=== PATIENT | female | born 1995 | race African-American/Black ===

== ENCOUNTER 2016-08-13 17:38 | Emergency (ER) | payer OTHER ==
[2016-08-13] MEDS ORDERED: KETOROLAC TROMETHAMINE 30 MG/1 ML VIAL ONE (17:52)
[2016-08-13] MEDS ORDERED: LIDOCAINE HCL 1%, 10 MG/ML (20ML VIAL) ONE (18:03)
[2016-08-13] MEDS ORDERED: KETOROLAC TROMETHAMINE 30 MG/1 ML VIAL IVPUSH ONE (18:32)
[2016-08-13] MEDS ORDERED: ACETAMINOPHEN 1000 MG/100 ML VIAL (NON FORMULARY) IVPB ONE (18:33)
[2016-08-13 18:36] LABS: BASOPHIL 0.3 % (0-2.0); EOSINOPHIL 0.1 % (0-4.5); MCHC 33.4 g/dl (32.0-36.0); MEAN CELL VOLUME 89.7 fl (80-96); PLATELET COUNT 209 K/MM3 (134-434); RDW 11.4 % (11.6-15.6)
--- NOTE | 2016-08-13 18:36 | PDOC ---
History of Present Illness - General History Source: Patient, Old Records Exam Limitations: No Limitations - History of Present Illness Initial Comments: 08/13/16 18:42 The patient is a 21 year old female with no significant past medical history who presents to the emergency department with diarrhea, vomiting, chills, weakness, abdominal pain, and menstrual cramps since yesterday. The patient notes that her vomitous and diarrhea is nonbloody and nonbilious.The patient states that she has not been unable to keep any oral intake down since onset of symptoms. The patient notes that she had a mild subjective fever yesterday that has since resolved. The patient states that she is currently on her mentural period and notes that it is on time accompanied by her normal menstrual cramps. She also admits to chills. The patient denies any sick contacts. Remainder of the review of systems is negative - HPI 12 point review of systems is as per history of present illness and otherwise negative. <Eladio Correa - Last Filed: 08/13/16 18:49> <Ellie Hwang - Last Filed: 08/15/16 07:53> - General Chief Complaint: Vomiting/Diarrhea Stated Complaint: VOMITING AND DIARRHEA Time Seen by Provider: 08/13/16 18:25 Past History <Eladio Correa - Last Filed: 08/13/16 18:49> - Past Medical History Asthma: No Cancer: No Cardiac Disorders: No Diabetes: No HTN: No Seizures: No Thyroid Disease: No - Immunization History Immunization Up to Date: No - Psycho/Social/Smoking Cessation Hx Anxiety: No Suicidal Ideation: No Smoking Status: No Smoking History: Never smoked Have you smoked in the past 12 months: No Number of Cigarettes Smoked Daily: 0 Hx Alcohol Use: No Drug/Substance Use Hx: No Substance Use Type: None Hx Substance Use Treatment: No <Ellie Hwang - Last Filed: 08/15/16 07:53> - Past Medical History Allergies/Adverse Reactions: Allergies Allergy/AdvReac Type Severity Reaction Status Date / Time No Known Drug Allergies Allergy Verified 08/13/16 17:41 Home Medications: Ambulatory Orders No Home Medications 0 dose .ROUTE UTDICT 08/08/12 Naproxen [Naprosyn -] 500 mg PO BID #20 tablet 01/16/17 Ondansetron [Zofran Odt -] 4 mg SL TID #12 od.tablet 08/13/16 *Physical Exam - Physical Exam Comments: 08/13/16 18:34 Physical exam GENERAL: The patient is awake, alert, and fully oriented, and in no apparent distress. HEAD: Normal with no signs of trauma. EYES: Sclera anicteric ENT: Mucous membranes slightly dry NECK: Normal range of motion, supple LUNGS: Breath sounds equal, clear to auscultation bilaterally. No wheezes, and no crackles. HEART: Regular rate and rhythm, normal S1 and S2 without murmur, rub or gallop. ABDOMEN: Abdomen is soft, with normal bowel sounds There is mild diffuse tenderness to palpation in all quadrants, without guarding or rebound There is no hepatosplenomegaly There is no CVA tenderness EXTREMITIES: Normal range of motion, no edema. No clubbing or cyanosis. No cords, erythema, or tenderness. NEUROLOGICAL: Cranial nerves II through XII grossly intact. Normal speech, normal gait. PSYCH: Normal mood, normal affect. SKIN: Warm, Dry, normal turgor, no rashes or lesions noted. <Ellie Hwang - Last Filed: 08/15/16 07:53> ED Treatment Course - LABORATORY CBC & Chemistry Diagram: 08/13/16 18:25 08/13/16 18:25 - ADDITIONAL ORDERS Additional order review: 08/13/16 18:25 RBC 4.73 MCV 89.7 MCHC 33.4 RDW 11.4 L MPV 8.0 Neutrophils % 85.0 H Lymphocytes % 10.9 Monocytes % 3.7 L Eosinophils % 0.1 Basophils % 0.3 - Medications Given in the ED: ED Medications Discontinued Medications Generic Name Dose Route Start Last Admin Trade Name Freq PRN Reason Stop Dose Admin Acetaminophen 1,000 mg 08/13/16 18:33 08/13/16 18:37 Ofirmev Injection - IVPB 08/13/16 18:34 1,000 mg ONCE ONE Administration Ketorolac Tromethamine 30 mg 08/13/16 18:32 08/13/16 18:34 Toradol Injection - IVPUSH 08/13/16 18:33 30 mg ONCE ONE Administration <Eladio Correa - Last Filed: 08/13/16 18:49> - LABORATORY CBC & Chemistry Diagram: 08/13/16 18:25 08/13/16 18:25 <Ellie Hwang - Last Filed: 08/15/16 07:53> Medical Decision Making - Medical Decision Making 08/13/16 18:35 Most likely viral gastroenteritis with crampy abdominal pain, superimposed on menstrual cramps Will start IV fluid, Zofran, pain control 08/13/16 19:00 SIGN OUT Case discussed in detail with oncoming Emergency Physician including history, physical exam and ancillary studies. Oncoming Emergency Physician has assumed care for the patient and will complete the evaluation and treatment. Transfer of care to Dr. Alva at 7 PM awaiting all labwork, and reevaluation <Ellie Hwang - Last Filed: 08/15/16 07:53> *DC/Admit/Observation/Transfer - Attestations Scribe Attestion: 08/13/16 18:41 Documentation prepared by Eladio Correa, acting as electromedical equipment repairer for Ellie Mays MD. <Eladio Correa - Last Filed: 08/13/16 18:49> <Ellie Hwang - Last Filed: 08/15/16 07:53> Diagnosis at time of Disposition: Nausea vomiting and diarrhea, Dysmenorrhea, Dehydration - Discharge Dispostion Disposition: HOME Condition at time of disposition: Stable - Prescriptions Prescriptions: Naproxen [Naprosyn -] 500 mg PO BID #20 tablet Ondansetron [Zofran Odt -] 4 mg SL TID #12 od.tablet - Patient Instructions Additional Instructions: If he develop any more nausea or vomiting U can take Zofran 1 tablet as often as 3 times a day. For pain you can take Naprosyn 1 tablet twice a day. Clear liquids only for the next 6 hours.. After that if you have had no further vomiting you may have bananas, rice, applesauce, or toast. If no further vomiting for another 8 hours you may have regular food. If you vomit again then nothing to eat or drink for 2 hours. then start back with the clear liquids. Return to the emergency department immediately with ANY new, persistent or worsening symptoms. You MUST call and follow up with your doctor tomorrow if not better. Please make sure your doctor reviews the results of your emergency evaluation. Your hormone test was still relatively elevated it is important that you see your OB doctor in 2 days and have it repeated. Make sure that it is decreasing. Thank you for coming to the Emergency Department today for your care. It was a pleasure to see you today. Please note that your evaluation is INCOMPLETE until you follow-up with your doctor.
[2016-08-13] MEDS ORDERED: ACETAMINOPHEN INJECTION 100 ML IVPB ONE (18:38)
[2016-08-13] MEDS ORDERED: SODIUM CHLORIDE 1,000 ML IV SCH ×2 (18:45)
[2016-08-13 18:51] LABS: ALBUMIN 4.2 g/dl (3.5-5.0); ALK PHOS 49 U/L (32-92); ANION GAP 9 (8-16); BILIRUBIN,TOTAL 0.8 mg/dl (0.2-1.0); CALCIUM 9.5 mg/dl (8.4-10.2); CO2 24 mmol/L (22-28); CREATININE 0.8 mg/dl (0.6-1.3); GLUCOSE,RANDOM 115 mg/dl (74-106); MAGNESIUM 1.6 mg/dL (1.8-2.4); SGOT/AST 22 U/L (10-42); SGPT/ALT 13 U/L (10-40); TOT PROT 7.2 g/dl (6.4-8.3)
[2016-08-13 19:33] VITALS: BMI 27.9
--- NOTE | 2016-08-13 19:46 | PDOC ---
*Physical Exam - Vital Signs Last Vital Signs Temp Pulse Resp BP Pulse Ox 98.4 F 88 16 121/69 100 08/13/16 18:20 08/13/16 18:20 08/13/16 18:20 08/13/16 18:20 08/13/16 18:20 ED Treatment Course - LABORATORY CBC & Chemistry Diagram: 08/13/16 18:25 08/13/16 18:25 - ADDITIONAL ORDERS Additional order review: Laboratory Results 08/13/16 18:25 Sodium 135 L Potassium 3.5 Chloride 102 Carbon Dioxide 24 Anion Gap 9 BUN 11 Creatinine 0.8 Creat Clearance w eGFR > 60 Random Glucose 115 H Calcium 9.5 Magnesium 1.6 L Total Bilirubin 0.8 AST 22 ALT 13 Alkaline Phosphatase 49 Total Protein 7.2 Albumin 4.2 08/13/16 18:25 RBC 4.73 MCV 89.7 MCHC 33.4 RDW 11.4 L MPV 8.0 Neutrophils % 85.0 H Lymphocytes % 10.9 Monocytes % 3.7 L Eosinophils % 0.1 Basophils % 0.3 - Medications Given in the ED: ED Medications Discontinued Medications Generic Name Dose Route Start Last Admin Trade Name Freq PRN Reason Stop Dose Admin Acetaminophen 1,000 mg 08/13/16 18:33 08/13/16 18:37 Ofirmev Injection - IVPB 08/13/16 18:34 1,000 mg ONCE ONE Administration Ketorolac Tromethamine 30 mg 08/13/16 18:32 08/13/16 18:34 Toradol Injection - IVPUSH 08/13/16 18:33 30 mg ONCE ONE Administration Progress Note - Progress Note Progress Note: This is 21-year-old female whose care was transferred to in Dr. Abad at 1900 hrs. Patient comes in complaining of severe menstrual cramps and the nausea vomiting and diarrhea. Patient was moderately dehydrated on arrival in the emergency room. Patient is being hydrated and is on her second liter of fluid. Patient's labs were sent which she has a mildly elevated platelet count otherwise labs are unremarkable Patient has been able to urinate and her urinalysis and urine are still pending 20:30 Patient feels better post 2 L of fluid, antiemetics and some pain medication. However in discussion with patient after her test came back positive she revealed that she was 6 weeks on this past Saturday when she went to a women's health clinic and was given the pill. Patient said she began bleeding today. Given the amount of pain that the patient is having patient most likely is passing the however I am going to obtain an ultrasound to rule out ectopic and see what the status of the is. Quantitative hCG has also been ordered. 23:00 Patient had ultrasound done that shows no . There are small cyst bilateral with some complex fluid in the area of the left adnexa and cul-de- sac. Patient's pain and symptoms have resolved there is been no further vomiting and she is tolerating by mouth's in the ER Patient is now well hydrated. Patient's a beta hCG is 31,555. This is relatively high still however patient said she did have an ultrasound prior to the termination of her and it did show an intrauterine and no ectopic . Patient was told she needs to follow-up with her OB doctor in 2 days and have her beta hCG repeated to make sure it is declining. She was also told that if she has worsening pain that she should return to the emergency room for a repeat evaluation. *DC/Admit/Observation/Transfer Diagnosis at time of Disposition: Nausea vomiting and diarrhea, Dysmenorrhea, Dehydration - Discharge Dispostion Disposition: HOME Condition at time of disposition: Stable Admit: No - Prescriptions Prescriptions: Naproxen [Naprosyn -] 500 mg PO BID #20 tablet Ondansetron [Zofran Odt -] 4 mg SL TID #12 od.tablet - Patient Instructions Additional Instructions: If he develop any more nausea or vomiting U can take Zofran 1 tablet as often as 3 times a day. For pain you can take Naprosyn 1 tablet twice a day. Clear liquids only for the next 6 hours.. After that if you have had no further vomiting you may have bananas, rice, applesauce, or toast. If no further vomiting for another 8 hours you may have regular food. If you vomit again then nothing to eat or drink for 2 hours. then start back with the clear liquids. Return to the emergency department immediately with ANY new, persistent or worsening symptoms. You MUST call and follow up with your doctor tomorrow if not better. Please make sure your doctor reviews the results of your emergency evaluation. Your hormone test was still relatively elevated it is important that you see your OB doctor in 2 days and have it repeated. Make sure that it is decreasing. Thank you for coming to the Emergency Department today for your care. It was a pleasure to see you today. Please note that your evaluation is INCOMPLETE until you follow-up with your doctor.
[2016-08-13 20:18] LABS: URINE APPEARANCE BLOODY; URINE BILIRUBIN 2+ (NEGATIVE); URINE BLOOD 3+ (NEGATIVE); URINE COLOR RED; URINE GLUCOSE (UA) Negative (NEGATIVE); URINE KETONE 4+ (NEGATIVE); URINE LEUK ESTERASE Negative (NEGATIVE); URINE NITRITE Negative (NEGATIVE); URINE PROTEIN 3+ (NEGATIVE); URINE UROBILINOGEN >=8.0 E.U./dl (0.2-1.0)
[2016-08-13 20:19] LABS: URINE BACTERIA MODERATE /hpf (NEGATIVE); URINE RBC LOADED /hpf (0-3)
[2016-08-13] MEDS ORDERED: DEXTROSE 5%-NORMAL SALINE 1,000 ML IV ONE (20:30)
[2016-08-13 21:39] VITALS: BP 105/69; PULSE 72; TEMP 98.3
== END 2016-08-13 23:13 | disposition home or self-care (01) ==
LOC: FER 17:38
PROC: 3E033NZ Introduction of Analgesics, Hypnotics, Sedatives into Peripheral Vein, Percutaneous Approach (ICD-10-PCS; principal; 2016-08-13)
PROC: 3E033GC Introduction of Other Therapeutic Substance into Peripheral Vein, Percutaneous Approach (ICD-10-PCS; 2016-08-13)
PROC: 3E0333Z Introduction of Anti-inflammatory into Peripheral Vein, Percutaneous Approach (ICD-10-PCS; 2016-08-13)
PROC: 3E0337Z Introduction of Electrolytic and Water Balance Substance into Peripheral Vein, Percutaneous Approach (ICD-10-PCS; 2016-08-13)
DX: N94.6 Dysmenorrhea, unspecified (principal); R11.2 Nausea with vomiting, unspecified; R19.7 Diarrhea, unspecified; E86.0 Dehydration
CPT/HCPCS: 36415; 76801-TC; 80053; 81003; 81015; 83735; 84702; 84703; 85025; 99281-25

== ENCOUNTER 2016-09-08 18:17 | Emergency (ER) | payer OTHER ==
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
[2016-09-08 18:42] VITALS: BP 147/91; PULSE 90; TEMP 98.1; BMI 27.4
== END 2016-09-08 19:08 | disposition home or self-care (01) ==
LOC: FER 18:17
DX: S63.601A Unspecified sprain of right thumb, initial encounter (principal); Y04.2XXA Assault by strike against or bumped into by another person, initial encounter; Y93.89 Activity, other specified; Y92.9 Unspecified place or not applicable; Y99.0 Civilian activity done for income or pay
CPT/HCPCS: 73130-TC-RT; 99282-25

== ENCOUNTER 2018-10-07 13:36 | Emergency (ER) | payer OTHER ==
--- NOTE | 2018-10-07 13:39 | PDOC ---
History of Present Illness - General Chief Complaint: Nausea/Vomiting Stated Complaint: NAUSEA VOMITING DIARRHEA ON SATURDAY Time Seen by Provider: 10/07/18 13:38 - History of Present Illness Initial Comments: 23yo F with no signfincant PMH presenting with nausea, vomiting, and diarrhea. Patient states that she has felt poorly since Saturday. 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 She reports twenty episodes of nonbloody nonbilious vomiting. Has not been able to tolerate po intake. Anytime she attempts to eat, she vomits. Episode diarrhea was two days ago and she has not had a bowel movement since then. She has not taken anything for her symptoms. Denies abdominal pain. Reports body aches. Last menstrual period was 09/03/18. Has measured a fever of 100 on Saturday. No history of abdominal surgeries. Denies urinary frequency, dysuria, chest pain or shortness of breath. Past History - Past Medical History Allergies/Adverse Reactions: Allergies Allergy/AdvReac Type Severity Reaction Status Date / Time No Known Drug Allergies Allergy Verified 10/07/18 13:37 Home Medications: Ambulatory Orders Famotidine [Acid Occupational Health Nurse Supervisor] 10 mg PO BID #30 tablet 10/07/18 Metoclopramide HCl [Reglan] 10 mg PO Q6H PRN #20 tablet 10/07/18 Vitamins (Sjr) - 1 tab PO DAILY #30 tablet 10/07/18 Asthma: No Cancer: No Cardiac Disorders: No Diabetes: No HTN: No Seizures: No Thyroid Disease: No - Immunization History Immunization Up to Date: No - Suicide/Smoking/Psychosocial Hx Smoking Status: No Smoking History: Never smoked Have you smoked in the past 12 months: No Number of Cigarettes Smoked Daily: 0 Hx Alcohol Use: No Drug/Substance Use Hx: No Substance Use Type: None Hx Substance Use Treatment: No Review of Systems - Review of Systems Comments:: Constitutional: no fever, no chills HEENT: no throat pain, no dysphagia Cardiovascular: no chest pain, no palpitations Respiratory: no cough, no shortness of breath Gastrointestinal: no abdominal pain, +nausea Genitourinary: no dysuria, no vaginal bleeding Musculoskeletal: +myalgia, no arthralgia Skin: no rash, no itching Neurologic: no headache, no dizziness *Physical Exam - Physical Exam Comments: General: Awake, alert, and fully oriented, in no acute distress Head: No signs of trauma Eyes: EOMI, sclera anicteric ENT: Dry mucus membranes Neck: Normal ROM, supple Lungs: Lungs clear, Normal breath sounds Cardio: Regular rhythm, S1 and S2 present Abdomen: Soft, nontender. No guarding, no rebound, no masses Extremities: Normal range of motion, Distal pulses present SKIN: Warm, Dry, normal turgor Neurologic: Cranial nerves II through XII grossly intact. Normal speech ED Treatment Course - LABORATORY CBC & Chemistry Diagram: 10/07/18 14:12 10/07/18 14:12 Medical Decision Making - Medical Decision Making 23yo F with no signfincant PMH presenting with nausea, vomiting, and diarrhea. DDX including but not limited to , gastritis, gastroenteritis, appendicitis, pancreatitis, nephrolithiasis Pepcid, Zofran, 1g Ofirmev, 2L NS 10/07/18 14:26 Patient reports feeling better. No nausea currently. Has not vomited while she has been in the ED. 10/07/18 15:39 Patient is receiving her second liter of NS No anemia or leukocytosis Electrolytes unremarkable test positive UA negative for infection 10/07/18 15:48 Patient informed of . She did not suspect she was . 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 Greco in [place]. Denies abdominal pain or vaginal bleeding. Plan to finish second bag of NS. Given 4+ ketones in urine, will administer D5NS at double maintenance fluid rate. 10/07/18 16:01 PO challenge initiated with water and saltine crackers 10/07/18 17:30 Passed po challenge Patient discharged 10/07/18 18:05 *DC/Admit/Observation/Transfer Diagnosis at time of Disposition: Nausea and vomiting in - Discharge Dispostion Disposition: HOME Condition at time of disposition: Stable - Prescriptions Prescriptions: Famotidine [Acid Occupational Health Nurse Supervisor] 10 mg PO BID #30 tablet Metoclopramide HCl [Reglan] 10 mg PO Q6H PRN #20 tablet PRN Reason: Nausea Vitamins (Sjr) - 1 tab PO DAILY #30 tablet - Referrals - Patient Instructions Printed Discharge Instructions: DI for Hyperemesis Gravidarum Additional Instructions: You came into the ED for nausea/vomiting/diarrhea. Blood work was within normal limits. test was positive for . Prescriptions sent to your pharmacy. Take as instructed. Follow-up with your surgical garment assembly supervisor and primary care doctor this week to discuss this ED visit and to further evaluate your symptoms. Your care is not complete until you do so. Call and make an appointment. Immediate medical attention is required if you have: high fevers, persistent nausea/vomiting unrelieved by antinausea medicine, or any new or concerning symptoms. If you think you are having an emergency, call for emergency medical services or present to the emergency department right away. - Post Discharge Activity Forms/Work/School Notes: Back to Work
[2018-10-07 13:42] VITALS: BMI 30.5
[2018-10-07] MEDS ORDERED: FAMOTIDINE 20 MG/50 ML IVPB 20 MG/50 ML MG IVPB ONE ×2 (13:53→14:15)
[2018-10-07] MEDS ORDERED: ONDANSETRON 4 MG/2 ML VIAL IVPUSH ONE (13:53)
[2018-10-07] MEDS ORDERED: SODIUM CHLORIDE 1,000 ML IV STA ×2 (13:53→14:00)
[2018-10-07] MEDS ORDERED: ACETAMINOPHEN 1000 MG/100 ML VIAL (NON FORMULARY) IVPB ONE (13:53)
[2018-10-07] MEDS ORDERED: ACETAMINOPHEN INJECTION 100 ML IVPB ONE (14:15)
--- NOTE | 2018-10-07 14:15 | PDOC ---
Attending Attestation - Resident Resident Name: Payton Morocho - ED Attending Attestation I have performed the following: I have examined & evaluated the patient, The case was reviewed & discussed with the resident, I agree w/resident's findings & plan, Exceptions are as noted - HPI HPI: 10/07/18 14:09 23 year old female with no pmh presents with nausea, vomiting and tactile fever. 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 There are multiple people with GI symptoms there. 3 days ago, started to develop low grade fever 100 degrees, multiple episodes of nausea and vomiting. Had diarrhea the first day but no diarrhea since then. Denies abdominal pain, vaginal bleeding or discharge. Has had decreased appetite. Went to work today, but her boss directed pt to the ED. - Physicial Exam PE: 10/07/18 14:11 GENERAL: Awake, alert, and fully oriented, in no acute distress HEAD: No signs of trauma EYES: EOMI, sclera anicteric, conjunctiva clear ENT: Auricles normal inspection, hearing grossly normal, nares patent, +dry mucous membranes NECK: Normal ROM, supple, ABDOMEN: Soft, nontender, normoactive bowel sounds. No guarding, no rebound. No masses EXTREMITIES: Normal range of motion, no edema. No clubbing or cyanosis. No cords, erythema, or tenderness NEUROLOGICAL: Cranial nerves II through XII grossly intact. Normal speech, SKIN: Warm, Dry, normal turgor, no rashes or lesions noted. - Medical Decision Making 10/07/18 14:15 Vital Signs Temp Pulse Resp BP Pulse Ox 98.4 F 84 16 114/84 100 10/07/18 13:37 10/07/18 13:37 10/07/18 13:37 10/07/18 13:37 10/07/18 13:37 I suspect that the patient has viral gastroenteritis. Labs, IVF, symptom control and reassess. 10/07/18 16:24 CBC, BMP 10/07/18 14:12 10/07/18 14:12 CMP Sodium 133 mmol/L (136-145) L 10/07/18 14:12 Potassium 3.5 mmol/L (3.5-5.1) 10/07/18 14:12 Chloride 100 mmol/L (98-107) 10/07/18 14:12 Carbon Dioxide 26 mmol/L (21-32) 10/07/18 14:12 Anion Gap 7 MMOL/L (8-16) L 10/07/18 14:12 BUN 7 mg/dl (7-18) 10/07/18 14:12 Creatinine 0.7 mg/dl (0.55-1.3) 10/07/18 14:12 Creat Clearance w eGFR 102.81 (>60) 10/07/18 14:12 Random Glucose 97 mg/dl (74-106) 10/07/18 14:12 Calcium 9.2 mg/dl (8.5-10) 10/07/18 14:12 Total Bilirubin 0.5 mg/dl (0.2-1) 10/07/18 14:12 AST 17 U/L (15-37) 10/07/18 14:12 ALT 11 U/L (13-61) L 10/07/18 14:12 Alkaline Phosphatase 54 U/L (45-117) 10/07/18 14:12 Total Protein 7.9 g/dl (6.4-8.2) 10/07/18 14:12 Albumin 4.2 g/dl (3.4-5.0) 10/07/18 14:12 Pt's urine shows 4+ ketones, which confirms dehydration. Will give patient more IVF and D5 NS as well. Pt also incidentally urine positive. Pt given results of her and she is now aware. She has her own health insurance agent doctor. Pt absolutely has no abdominal pain, or vaginal bleeding. Will defer on transvaginal ultrasound at this time. Once pt can tolerate PO, will d/c patient home. Likely combination of viral syndrome and hyperemesis gravidarum. 10/07/18 17:48 Pt tolerating PO. She like to go home. *DC/Admit/Observation/Transfer Diagnosis at time of Disposition: Nausea and vomiting in - Discharge Dispostion Disposition: HOME Condition at time of disposition: Stable - Prescriptions Prescriptions: Famotidine [Acid Production Team Advisor] 10 mg PO BID #30 tablet Metoclopramide HCl [Reglan] 10 mg PO Q6H PRN #20 tablet PRN Reason: Nausea Vitamins ([facility]) - 1 tab PO DAILY #30 tablet - Referrals - Patient Instructions Printed Discharge Instructions: DI for Hyperemesis Gravidarum Additional Instructions: You came into the ED for nausea/vomiting/diarrhea. Blood work was within normal limits. test was positive for . Prescriptions sent to your pharmacy. Take as instructed. Follow-up with your health insurance agent and primary care doctor this week to discuss this ED visit and to further evaluate your symptoms. Your care is not complete until you do so. Call and make an appointment. Immediate medical attention is required if you have: high fevers, persistent nausea/vomiting unrelieved by antinausea medicine, or any new or concerning symptoms. If you think you are having an emergency, call for emergency medical services or present to the emergency department right away. - Post Discharge Activity
[2018-10-07] MEDS ORDERED: ONDANSETRON 4 MG/2 ML VIAL ONE (14:16)
[2018-10-07 14:33] LABS: BASO % 0.6 % (0-2.0); HEMOGLOBIN 14.8 GM/dl (10.7-15.3); LYMPH % 20.6 % (8-40); MCH 30.5 pg (25.7-33.7); MCHC 33.7 g/dl (32.0-36.0); MEAN CELL VOLUME 90.7 fl (80-96); MEAN PLT VOLUME 7.8 fl (7.5-11.1); MONO % 6.8 % (3.8-10.2); PLATELET COUNT 233 K/MM3 (134-434); RBC 4.84 M/mm3 (3.60-5.2); RDW 11.3 % (11.6-15.6); WHITE BLOOD COUNT 7.4 K/mm3 (4.0-10.8)
[2018-10-07 14:45] LABS: ALBUMIN 4.2 g/dl (3.4-5.0); ALK PHOS 54 U/L (45-117); ANION GAP 7 MMOL/L (8-16); BILIRUBIN,TOTAL 0.5 mg/dl (0.2-1); BLOOD UREA NITROGEN 7 mg/dl (7-18); CALCIUM 9.2 mg/dl (8.5-10); CHLORIDE 100 mmol/L (98-107); CO2 26 mmol/L (21-32); CREATININE 0.7 mg/dl (0.55-1.3); GLUCOSE,RANDOM 97 mg/dl (74-106); POTASSIUM 3.5 mmol/L (3.5-5.1); SGOT/AST 17 U/L (15-37); SGPT/ALT 11 U/L (13-61); SODIUM 133 mmol/L (136-145); TOT PROT 7.9 g/dl (6.4-8.2)
[2018-10-07 15:44] LABS: PH,URINE 7.5 (4.5-8); URINE APPEARANCE Clear; URINE BILIRUBIN 1+ (NEGATIVE); URINE COLOR Yellow; URINE GLUCOSE (UA) Negative (NEGATIVE); URINE KETONE 4+ (NEGATIVE); URINE LEUK ESTERASE TRACE (NEGATIVE); URINE NITRITE Negative (NEGATIVE); URINE PROTEIN 2+ (NEGATIVE)
[2018-10-07] MEDS ORDERED: DEXTROSE 5%-WATER - 1,000 ML IV ONE (15:55)
[2018-10-07] MEDS ORDERED: DEXTROSE 5%-NORMAL SALINE 500 ML IV ONE (15:58)
[2018-10-07 16:38] LABS: EPI CELLS FEW /HPF; URINE BACTERIA 1+ /hpf (NEGATIVE); URINE RBC 0-2 /hpf (0-3)
[2018-10-07 18:12] VITALS: BP 101/64; PULSE 68; TEMP 98.8
== END 2018-10-07 18:16 | disposition home or self-care (01) ==
LOC: FER 13:36
PROC: 3E033NZ Introduction of Analgesics, Hypnotics, Sedatives into Peripheral Vein, Percutaneous Approach (ICD-10-PCS; principal; 2018-10-07)
PROC: 3E033GC Introduction of Other Therapeutic Substance into Peripheral Vein, Percutaneous Approach (ICD-10-PCS; 2018-10-07)
PROC: 3E0337Z Introduction of Electrolytic and Water Balance Substance into Peripheral Vein, Percutaneous Approach (ICD-10-PCS; 2018-10-07)
DX: O26.891 Other specified pregnancy related conditions, first trimester (principal); Z3A.00 Weeks of gestation of pregnancy not specified; R11.2 Nausea with vomiting, unspecified
CPT/HCPCS: 36415; 80053; 81003; 81015; 84703; 85025; 87086; 99283-25; J0131; J7030

== ENCOUNTER 2020-09-15 07:35 | Emergency (ER) | payer BC ==
[2020-09-15] MEDS ORDERED: ONDANSETRON 4 MG/2 ML VIAL IVPUSH ONE (07:53)
[2020-09-15] MEDS ORDERED: SODIUM CHLORIDE 0.9% 500 ML INFUS.BAG IV ONE ×3 (07:53→09:43)
[2020-09-15] MEDS ORDERED: ONDANSETRON 4 MG/2 ML VIAL ONE (08:07)
[2020-09-15 08:22] VITALS: TEMP 98.3; BMI 35.7
[2020-09-15 09:02] LABS: BASO % 0.1 % (0-2.0); HEMATOCRIT 41.4 % (32.4-45.2); HEMOGLOBIN 14.4 GM/dL (10.7-15.3); LYMPH % 10.6 % (8-40); MCH 31.5 pg (25.7-33.7); MCHC 34.8 g/dl (32.0-36.0); MEAN CELL VOLUME 90.5 fl (80-96); MEAN PLT VOLUME 8.3 fl (7.5-11.1); MONO % 1.1 % (3.8-10.2); NEUT % 88.2 % (42.8-82.8); PLATELET COUNT 222 K/MM3 (134-434); RBC 4.57 M/mm3 (3.60-5.2)
[2020-09-15 09:06] LABS: CHLORIDE 107 mmol/L (98-107); POTASSIUM 4.5 mmol/L (3.5-5.1); SODIUM 139 mmol/L (136-145)
[2020-09-15 09:08] LABS: ANION GAP 7 MMOL/L (8-16); BLOOD UREA NITROGEN 9.5 mg/dL (7-18); CALCIUM 9.8 mg/dL (8.5-10.1); CO2 24 mmol/L (21-32); GLUCOSE,RANDOM 120 mg/dL (74-106)
[2020-09-15 09:09] LABS: LIPASE 62 U/L (73-393)
[2020-09-15 09:11] LABS: CREATININE 0.9 mg/dL (0.55-1.3); SGPT/ALT 25 U/L (13-61)
[2020-09-15 09:12] LABS: SGOT/AST 21 U/L (15-37)
[2020-09-15 09:13] LABS: BILIRUBIN,TOTAL 0.7 mg/dL (0.2-1); TOT PROT 8.1 g/dl (6.4-8.2)
[2020-09-15 09:14] LABS: ALK PHOS 48 U/L (45-117)
[2020-09-15] MEDS ORDERED: METOCLOPRAMIDE HCL INJECTION 10 MG/2 ML VIAL IVPUSH ONE (09:43)
[2020-09-15] MEDS ORDERED: METOCLOPRAMIDE HCL INJECTION 10 MG/2 ML VIAL ONE (09:48)
[2020-09-15 11:10] VITALS: BP 94/60; PULSE 70
[2020-09-15 11:57] LABS: PH,URINE 6.5 (5.0-8.0); URINE APPEARANCE CLEAR; URINE BILIRUBIN NEGATIVE (NEGATIVE); URINE COLOR YELLOW; URINE GLUCOSE (UA) NEGATIVE (NEGATIVE); URINE KETONE 4+ (NEGATIVE); URINE LEUK ESTERASE NEGATIVE (NEGATIVE); URINE NITRITE NEGATIVE (NEGATIVE); URINE PROTEIN TRACE (NEGATIVE)
[2020-09-15 12:01] LABS: EPI CELLS >36 /uL (0-25.1); HYALINE CASTS 3 /uL (0-3.1); URINE BACTERIA 877 /uL (0-1359); URINE RBC 3 /uL (0-23.9); URINE WBC 58.4 /uL (0-25.8)
== END 2020-09-15 12:31 | disposition home or self-care (01) ==
LOC: JER 07:35
PROC: 3E033GC Introduction of Other Therapeutic Substance into Peripheral Vein, Percutaneous Approach (ICD-10-PCS; principal; 2020-09-15)
PROC: 3E033GC Introduction of Other Therapeutic Substance into Peripheral Vein, Percutaneous Approach (ICD-10-PCS; 2020-09-15)
DX: R11.2 Nausea with vomiting, unspecified (principal)
CPT/HCPCS: 36415; 80053; 81003; 83690; 84702; 85025; 87086; 99284-25

== ENCOUNTER 2021-05-04 00:02 | Emergency (ER) | payer BC ==
[2021-05-04 00:47] VITALS: BP 117/73; PULSE 77; TEMP 98.2; BMI 30.2
[2021-05-04 01:19] LABS: BASO % 0.9 % (0-2.0); EOS % 1.8 % (0-4.5); HEMATOCRIT 38.4 % (32.4-45.2); HEMOGLOBIN 13.4 GM/dL (10.7-15.3); LYMPH % 34.5 % (8-40); MCH 31.8 pg (25.7-33.7); MEAN CELL VOLUME 90.8 fl (80-96); MEAN PLT VOLUME 7.1 fl (7.5-11.1); MONO % 9.2 % (3.8-10.2); NEUT % 53.6 % (42.8-82.8); PLATELET COUNT 199 10^3/uL (134-434); RBC 4.24 M/mm3 (3.60-5.2); RDW 12.4 % (11.6-15.6); WHITE BLOOD COUNT 9.3 K/mm3 (4.0-10.0)
[2021-05-04 01:28] LABS: INR 0.94 (0.83-1.09); PROTHROMBIN TIME (PATIENT) 11.5 SEC (9.7-13.0)
[2021-05-04 01:31] LABS: ACTIVATED PTT 27.6 SECONDS (25.2-36.5)
== END 2021-05-04 02:46 | disposition home or self-care (01) ==
LOC: JER 00:02
DX: O20.9 Hemorrhage in early pregnancy, unspecified (principal); Z3A.08 8 weeks gestation of pregnancy
CPT/HCPCS: 36415; 76817-TC; 84702; 85025; 85027; 85610; 85730; 86850; 86900; 86901; 99284-25

== ENCOUNTER 2021-05-04 18:54 | Emergency (ER) | payer BC ==
[2021-05-04 19:16] VITALS: BMI 34.3
[2021-05-04] MEDS ORDERED: ACETAMINOPHEN 1000 MG/100 ML VIAL (NON FORMULARY) IVPB ONE (19:40)
[2021-05-04] MEDS ORDERED: ONDANSETRON 4 MG/2 ML VIAL IVPUSH ONE (19:40)
[2021-05-04] MEDS ORDERED: SODIUM CHLORIDE 0.9% 500 ML INFUS.BAG IV ONE (19:40)
[2021-05-04] MEDS ORDERED: ACETAMINOPHEN INJECTION 100 ML IVPB ONE (19:49)
[2021-05-04] MEDS ORDERED: ONDANSETRON 4 MG/2 ML VIAL ONE (19:49)
[2021-05-04] MEDS ORDERED: morphine CARPU-JECT 4 MG/1 ML DISP.SYRIN IVPUSH ONE (19:58)
[2021-05-04] MEDS ORDERED: morphine SULFATE 4 MG/ML VIAL ONE (20:01)
[2021-05-04 20:10] LABS: BASO % 0.3 % (0-2.0); EOS % 0.4 % (0-4.5); HEMATOCRIT 40.5 % (32.4-45.2); HEMOGLOBIN 14.1 GM/dL (10.7-15.3); LYMPH % 13.7 % (8-40); MCH 31.4 pg (25.7-33.7); MCHC 34.9 g/dl (32.0-36.0); MEAN CELL VOLUME 89.9 fl (80-96); MEAN PLT VOLUME 7.2 fl (7.5-11.1); MONO % 6.4 % (3.8-10.2); NEUT % 79.2 % (42.8-82.8); PLATELET COUNT 214 10^3/uL (134-434); RDW 12.4 % (11.6-15.6)
[2021-05-04 20:41] LABS: ALBUMIN 3.8 g/dl (3.4-5.0); BLOOD UREA NITROGEN 4.4 mg/dL (7-18); CALCIUM 9.3 mg/dL (8.5-10.1); MAGNESIUM 1.7 mg/dL (1.8-2.4)
[2021-05-04 20:44] LABS: CREATININE 0.8 mg/dL (0.55-1.3)
[2021-05-04 20:46] LABS: BILIRUBIN,TOTAL 0.5 mg/dL (0.2-1); TOT PROT 7.5 g/dl (6.4-8.2)
[2021-05-04] MEDS ORDERED: POTASSIUM CHLORIDE TABS 20 MEQ TABLET.ER (FP) PO ONE (21:18)
[2021-05-04] MEDS ORDERED: POTASSIUM CHLORIDE TABS 10 MEQ TABLET.ER (FP) ONE (21:41)
[2021-05-04 22:43] VITALS: BP 110/68; PULSE 88; TEMP 98.6
== END 2021-05-04 23:17 | disposition home or self-care (01) ==
LOC: JER 18:54
PROC: 3E033GC Introduction of Other Therapeutic Substance into Peripheral Vein, Percutaneous Approach (ICD-10-PCS; principal; 2021-05-04)
DX: O03.9 Complete or unspecified spontaneous abortion without complication (principal); O21.9 Vomiting of pregnancy, unspecified; Z3A.08 8 weeks gestation of pregnancy
CPT/HCPCS: 36415; 80053; 83735; 84702; 85025; 88305-TC; 99284-25; J0131

== ENCOUNTER 2021-09-22 18:17 | Emergency (ER) | payer BC, OTHER ==
[2021-09-22 18:25] VITALS: BP 126/79; PULSE 92; BMI 30.5
[2021-09-22 18:37] VITALS: TEMP 98.7
[2021-09-22] MEDS ORDERED: SODIUM CHLORIDE 0.9% 500 ML INFUS.BAG IV ONE ×2 (19:05→19:55)
[2021-09-22] MEDS ORDERED: ONDANSETRON 4 MG/2 ML VIAL IVPUSH ONE (19:05)
[2021-09-22 19:52] LABS: HCG,QUALITATIVE URINE Negative
[2021-09-22 19:53] LABS: EPI CELLS >36 /uL (0-25.1); HYALINE CASTS 6 /uL (0-3.1); URINE APPEARANCE CLOUDY; URINE BACTERIA 3139 /uL (0-1359); URINE BILIRUBIN NEGATIVE (NEGATIVE); URINE COLOR YELLOW; URINE GLUCOSE (UA) NEGATIVE (NEGATIVE); URINE KETONE 3+ (NEGATIVE); URINE LEUK ESTERASE 2+ (NEGATIVE); URINE NITRITE NEGATIVE (NEGATIVE); URINE PROTEIN TRACE (NEGATIVE); URINE RBC 17 /uL (0-23.9); URINE WBC 395 /uL (0-25.8)
[2021-09-22 19:56] LABS: HEMATOCRIT 43.6 % (32.4-45.2); HEMOGLOBIN 15.2 GM/dL (10.7-15.3); MCH 31.7 pg (25.7-33.7); MCHC 34.9 g/dl (32.0-36.0); MEAN CELL VOLUME 90.7 fl (80-96); MEAN PLT VOLUME 7.5 fl (7.5-11.1); PLATELET COUNT 186 10^3/uL (134-434); RBC 4.81 M/mm3 (3.60-5.2); RDW 12.3 % (11.6-15.6)
[2021-09-22 20:10] LABS: CALCIUM 9.4 mg/dL (8.5-10.1)
[2021-09-22 20:12] LABS: ALBUMIN 4.1 g/dl (3.4-5.0); BLOOD UREA NITROGEN 14.7 mg/dL (7-18)
[2021-09-22 20:15] LABS: CREATININE 0.9 mg/dL (0.55-1.3)
[2021-09-22 20:16] LABS: BILIRUBIN,TOTAL 0.4 mg/dL (0.2-1); TOT PROT 7.8 g/dl (6.4-8.2)
[2021-09-22 20:34] LABS: ANISOCYTOSIS 0; MACROCYTOSIS 0
== END 2021-09-22 21:57 | disposition home or self-care (01) ==
LOC: JER 18:17
PROC: 3E033NZ Introduction of Analgesics, Hypnotics, Sedatives into Peripheral Vein, Percutaneous Approach (ICD-10-PCS; principal; 2021-09-22)
DX: R11.2 Nausea with vomiting, unspecified (principal); R19.7 Diarrhea, unspecified
CPT/HCPCS: 36415; 80053; 81003; 84703; 85025; 87086; 99284-25

== ENCOUNTER 2022-09-03 13:49 | Emergency (ER) | payer OTHER ==
[2022-09-03 14:06] VITALS: RESP 18; BMI 25.4
[2022-09-03] MEDS ORDERED: SODIUM CHLORIDE 0.9% 500 ML INFUS.BAG IV ONE (15:03)
[2022-09-03] MEDS ORDERED: ONDANSETRON 4 MG/2 ML VIAL ONE ×3 (15:03→19:26)
[2022-09-03] MEDS ORDERED: ONDANSETRON 4 MG/2 ML VIAL IVPB ONE ×2 (15:03→16:46)
[2022-09-03] MEDS ORDERED: FAMOTIDINE 20 MG/50 ML IVPB 20 MG/50 ML MG IVPB ONE ×2 (15:15→15:19)
[2022-09-03] MEDS ORDERED: ACETAMINOPHEN 1000 MG/100 ML BAG IVPB ONE (15:15)
[2022-09-03] MEDS ORDERED: ACETAMINOPHEN INJECTION 100 ML IVPB ONE (15:18)
[2022-09-03 15:24] LABS: BASO % 0.3 % (0-2.0); EOS % 0.1 % (0-4.5); HEMATOCRIT 40.2 % (32.4-45.2); MCH 31.6 pg (25.7-33.7); MCHC 34.7 g/dl (32.0-36.0); MEAN CELL VOLUME 90.9 fl (80-96); MEAN PLT VOLUME 7.5 fl (7.5-11.1); MONO % 2.7 % (3.8-10.2); NEUT % 82.9 % (42.8-82.8); PLATELET COUNT 212 10^3/uL (134-434); RBC 4.42 M/mm3 (3.60-5.2); RDW 12.1 % (11.6-15.6); WHITE BLOOD COUNT 9.7 K/mm3 (4.0-10.0)
[2022-09-03 15:53] LABS: ALBUMIN 3.9 g/dl (3.4-5.0); CALCIUM 9.6 mg/dL (8.5-10.1)
[2022-09-03 15:54] LABS: BLOOD UREA NITROGEN 7.9 mg/dL (7-18)
[2022-09-03 15:56] LABS: CREATININE 0.8 mg/dL (0.55-1.3)
[2022-09-03 15:58] LABS: BILIRUBIN,TOTAL 0.4 mg/dL (0.2-1); TOT PROT 7.6 g/dl (6.4-8.2)
[2022-09-03] MEDS ORDERED: HALOPERIDOL LACTATE 5 MG/ML IM ONE (16:24)
[2022-09-03] MEDS: HALOPERIDOL DECANOATE 500 MG/5ML MDV IM ONE ×2 (16:27→16:42)
[2022-09-03 18:59] LABS: HCG,QUALITATIVE URINE Positive
[2022-09-03 19:02] LABS: EPI CELLS >36 /uL (0-25.1); HYALINE CASTS 2 /uL (0-3.1); PH,URINE 6.5 (5.0-8.0); URINE APPEARANCE CLOUDY; URINE BACTERIA 1302 /uL (0-1359); URINE BILIRUBIN NEGATIVE (NEGATIVE); URINE COLOR YELLOW; URINE GLUCOSE (UA) NEGATIVE (NEGATIVE); URINE KETONE 4+ (NEGATIVE); URINE LEUK ESTERASE NEGATIVE (NEGATIVE); URINE NITRITE NEGATIVE (NEGATIVE); URINE PROTEIN 1+ (NEGATIVE); URINE RBC 36 /uL (0-23.9); URINE WBC 47 /uL (0-25.8)
[2022-09-03] MEDS ORDERED: ONDANSETRON 4 MG/2 ML VIAL IVPUSH ONE (19:04)
[2022-09-03] MEDS ORDERED: LACTATED RINGERS SOLUTION 1,000 ML/1,000 ML INFUS.BAG IV SCH (21:00)
[2022-09-03] MEDS ORDERED: METOCLOPRAMIDE HCL INJECTION 10 MG/2 ML VIAL IVPUSH ONE (21:01)
[2022-09-03] MEDS ORDERED: METOCLOPRAMIDE HCL INJECTION 10 MG/2 ML VIAL ONE (21:04)
[2022-09-03 22:54] VITALS: BP 96/52; PULSE 68; TEMP 97.8
== END 2022-09-03 23:01 | disposition home or self-care (01) ==
LOC: JER 13:49
PROC: 3E0333Z Introduction of Anti-inflammatory into Peripheral Vein, Percutaneous Approach (ICD-10-PCS; principal; 2022-09-03)
PROC: 3E033GC Introduction of Other Therapeutic Substance into Peripheral Vein, Percutaneous Approach (ICD-10-PCS; 2022-09-03)
PROC: 3E033GC Introduction of Other Therapeutic Substance into Peripheral Vein, Percutaneous Approach (ICD-10-PCS; 2022-09-03)
PROC: 3E033GC Introduction of Other Therapeutic Substance into Peripheral Vein, Percutaneous Approach (ICD-10-PCS; 2022-09-03)
DX: O21.1 Hyperemesis gravidarum with metabolic disturbance (principal); Z3A.01 Less than 8 weeks gestation of pregnancy
CPT/HCPCS: 0241U-QW; 36415; 76817-TC; 80053; 81003; 83690; 84702; 84703; 85025; 93005; 93010; 99285-25

== ENCOUNTER 2022-11-04 18:06 | Emergency (ER) | payer OTHER ==
[2022-11-04 18:20] VITALS: BP 147/67; PULSE 60; RESP 20; TEMP 98; BMI 34.7
[2022-11-04] MEDS ORDERED: SODIUM CHLORIDE 0.9% 500 ML INFUS.BAG IV ONE (18:36)
[2022-11-04] MEDS ORDERED: ACETAMINOPHEN 1000 MG/100 ML BAG IVPB ONE (18:36)
[2022-11-04] MEDS ORDERED: ONDANSETRON 4 MG/2 ML VIAL IVPUSH ONE (18:36)
[2022-11-04] MEDS ORDERED: ONDANSETRON 4 MG/2 ML VIAL ONE (18:46)
[2022-11-04] MEDS ORDERED: ACETAMINOPHEN INJECTION 100 ML IVPB ONE (18:46)
[2022-11-04 19:08] LABS: BASO % 0.3 % (0-2.0); HEMATOCRIT 41.5 % (32.4-45.2); HEMOGLOBIN 14.3 GM/dL (10.7-15.3); LYMPH % 8.8 % (8-40); MCHC 34.5 g/dl (32.0-36.0); MEAN CELL VOLUME 89.9 fl (80-96); MEAN PLT VOLUME 7.8 fl (7.5-11.1); MONO % 1.8 % (3.8-10.2); NEUT % 89.1 % (42.8-82.8); PLATELET COUNT 235 10^3/uL (134-434); RBC 4.61 M/mm3 (3.60-5.2); RDW 12.9 % (11.6-15.6); WHITE BLOOD COUNT 13.7 K/mm3 (4.0-10.0)
[2022-11-04 19:28] LABS: ALBUMIN 3.8 g/dl (3.4-5.0); CALCIUM 9.7 mg/dL (8.5-10.1)
[2022-11-04 19:29] LABS: BLOOD UREA NITROGEN 8.6 mg/dL (7-18)
[2022-11-04] MEDS ORDERED: MAG HYDROX/AL HYDROX/SIMETH 30 ML UNIT-DOSE CUP PO ONE (19:30)
[2022-11-04 19:31] LABS: CREATININE 0.8 mg/dL (0.55-1.3)
[2022-11-04] MEDS ORDERED: PANTOPRAZOLE SODIUM 40 MG VIAL IVPUSH ONE (19:31)
[2022-11-04 19:33] LABS: BILIRUBIN,TOTAL 0.5 mg/dL (0.2-1); TOT PROT 7.6 g/dl (6.4-8.2)
[2022-11-04] MEDS ORDERED: METOCLOPRAMIDE HCL INJECTION 10 MG/2 ML VIAL IVPUSH ONE (19:34)
[2022-11-04] MEDS ORDERED: MAG HYDROX/AL HYDROX/SIMETH 30 ML UNIT-DOSE CUP ONE (19:37)
[2022-11-04] MEDS ORDERED: METOCLOPRAMIDE HCL INJECTION 10 MG/2 ML VIAL ONE (19:37)
[2022-11-04] MEDS ORDERED: PANTOPRAZOLE SODIUM 40 MG VIAL ONE (19:37)
== END 2022-11-04 22:09 | disposition home or self-care (01) ==
LOC: JER 18:06
PROC: 3E033NZ Introduction of Analgesics, Hypnotics, Sedatives into Peripheral Vein, Percutaneous Approach (ICD-10-PCS; principal; 2022-11-04)
PROC: 3E033GC Introduction of Other Therapeutic Substance into Peripheral Vein, Percutaneous Approach (ICD-10-PCS; 2022-11-04)
PROC: 3E033GC Introduction of Other Therapeutic Substance into Peripheral Vein, Percutaneous Approach (ICD-10-PCS; 2022-11-04)
DX: K29.00 Acute gastritis without bleeding (principal); R11.2 Nausea with vomiting, unspecified; R10.13 Epigastric pain
CPT/HCPCS: 36415; 80053; 83690; 84703; 85025; 99284-25

== ENCOUNTER 2023-11-06 19:06 | Observation (INO) | payer OTHER ==
[2023-11-06] MEDS ORDERED: ONDANSETRON 4 MG/2 ML VIAL ONE (19:23)
[2023-11-06 19:30] VITALS: BMI 32.5
[2023-11-06] MEDS: SODIUM CHLORIDE 1,000 ML IV ONE ×2 (19:37→22:20)
[2023-11-06] MEDS: ONDANSETRON 4 MG/2 ML VIAL IVPB ONE (19:37)
[2023-11-06 19:42] LABS: HEMATOCRIT 41.8 % (32.4-45.2); MCH 31.4 pg (25.7-33.7); MCHC 33.4 g/dl (32.0-36.0); MEAN PLT VOLUME 7.8 fl (7.5-11.1); PLATELET COUNT 175.9 10^3/uL (134-434); RBC 4.45 10^6/uL (3.60-5.2); RDW 13.5 % (11.6-15.6); WHITE BLOOD COUNT 14.4 10^3/uL (4.0-10.8)
[2023-11-06] MEDS ORDERED: ACETAMINOPHEN INJECTION 100 ML IVPB ONE (19:53)
[2023-11-06] MEDS ORDERED: MAG HYDROX/AL HYDROX/SIMETH 30 ML UNIT-DOSE CUP ONE (19:53)
[2023-11-06] MEDS ORDERED: FAMOTIDINE 20 MG/50 ML IVPB 20 MG/50 ML MG IVPB ONE (19:53)
[2023-11-06] MEDS: FAMOTIDINE 20 MG/50 ML IVPB 20 MG/50 ML MG IVPB ONE (19:57)
[2023-11-06] MEDS: MAG HYDROX/AL HYDROX/SIMETH 30 ML UNIT-DOSE CUP PO ONE (19:58)
[2023-11-06] MEDS: ACETAMINOPHEN 1000 MG/100 ML BAG IVPB ONE (19:58)
[2023-11-06 20:02] LABS: ALBUMIN 4.7 g/dl (3.4-5.0); BILIRUBIN,TOTAL 0.6 mg/dl (0.2-1); CALCIUM 9.7 mg/dl (8.5-10.1); CREATININE 0.8 mg/dl (0.6-1.3); POTASSIUM 3.5 mmol/L (3.5-5.1); TOT PROT 7.4 g/dl (6.4-8.2)
[2023-11-06] MEDS ORDERED: METOCLOPRAMIDE HCL INJECTION 10 MG/2 ML VIAL ONE (20:34)
[2023-11-06] MEDS: METOCLOPRAMIDE HCL INJECTION 10 MG/2 ML VIAL IVPUSH ONE (20:37)
[2023-11-06 22:40] LABS: EPITHELIAL CELLS 0-5 /hpf
[2023-11-07] MEDS: ACETAMINOPHEN 1000 MG/100 ML BAG IVPB PRN (03:39)
[2023-11-07] MEDS: METOCLOPRAMIDE HCL INJECTION 10 MG/2 ML VIAL IVPUSH PRN (03:40)
[2023-11-07 08:37] LABS: CALCIUM 8.7 mg/dl (8.5-10.1); CREATININE 0.7 mg/dl (0.6-1.3); POTASSIUM 3.4 mmol/L (3.5-5.1)
[2023-11-07 09:48] LABS: BASO % 0.1 % (0-2.0); HEMATOCRIT 33.6 % (32.4-45.2); HEMOGLOBIN 11.7 GM/dL (10.7-15.3); MCH 32.3 pg (25.7-33.7); MCHC 34.9 g/dl (32.0-36.0); MEAN CELL VOLUME 92.5 fl (80-96); MONO % 7.6 % (3.8-10.2); NEUT % 74.3 % (42.8-82.8); PLATELET COUNT 162 10^3/uL (134-434); RBC 3.64 M/mm3 (3.60-5.2); RDW 12.4 % (11.6-15.6); WHITE BLOOD COUNT 10.9 K/mm3 (4.0-10.0)
[2023-11-07] MEDS: DEXTROSE 5%-0.45% SALINE 1,000 ML IV SCH (17:49)
[2023-11-07 21:45] VITALS: RESP 18
[2023-11-08 06:22] VITALS: BP 108/61; PULSE 57; TEMP 98
[2023-11-08] MEDS: METOCLOPRAMIDE HCL INJECTION 10 MG/2 ML VIAL IVPUSH ONE (08:44)
[2023-11-08] MEDS: ONDANSETRON 4 MG/2 ML VIAL IVPUSH PRN (09:15)
[2023-11-08] MEDS: FAMOTIDINE 20 MG/50 ML IVPB 20 MG/50 ML MG IVPB SCH (09:15)
[2023-11-08] MEDS: ACETAMINOPHEN INJECTION 100 ML IVPB PRN (11:35)
[2023-11-08] MEDS: ONDANSETRON 4 MG/2 ML VIAL IVPUSH ONE (15:13)
[2023-11-08] MEDS ORDERED: Pregnancy Control Solution IV ONE (19:06)
== END 2023-11-08 18:30 | disposition left against medical advice (07) ==
LOC: FER 19:06 → FM/S 23:28
PROVIDERS: ADMIT Internal Medicine
PROC: 3E033NZ Introduction of Analgesics, Hypnotics, Sedatives into Peripheral Vein, Percutaneous Approach (ICD-10-PCS; principal; 2023-11-06)
PROC: 3E0337Z Introduction of Electrolytic and Water Balance Substance into Peripheral Vein, Percutaneous Approach (ICD-10-PCS; 2023-11-06)
DX: O21.0 Mild hyperemesis gravidarum (principal); Z3A.01 Less than 8 weeks gestation of pregnancy; F41.9 Anxiety disorder, unspecified; F17.200 Nicotine dependence, unspecified, uncomplicated
CPT/HCPCS: 36415; 76700-TC; 80048; 80053; 81003; 81015; 84702; 84703; 85025; 85027; 99285-25; G0378; J0131

== ENCOUNTER 2024-01-17 15:38 | Observation (INO) | payer OTHER ==
[2024-01-17 15:43] VITALS: BMI 29.9
[2024-01-17] MEDS ORDERED: ONDANSETRON 4 MG/2 ML VIAL ONE ×2 (16:07→21:03)
[2024-01-17] MEDS ORDERED: FAMOTIDINE 20 MG/50 ML IVPB 20 MG/50 ML MG IVPB ONE (16:08)
[2024-01-17 16:25] LABS: BASO % 0.3 % (0-2.0); EOS % 0.2 % (0-4.5); LYMPH % 12.6 % (8-40); MCH 32.1 pg (25.7-33.7); MCHC 34.2 g/dl (32.0-36.0); MEAN PLT VOLUME 7.4 fl (7.5-11.1); MONO % 2.2 % (3.8-10.2); NEUT % 84.7 % (42.8-82.8); PLATELET COUNT 241 10^3/uL (134-434); RBC 4.36 M/mm3 (3.60-5.2); RDW 13.5 % (11.6-15.6); WHITE BLOOD COUNT 10.6 K/mm3 (4.0-10.0)
[2024-01-17] MEDS: FAMOTIDINE 20 MG/50 ML IVPB 20 MG/50 ML MG IVPB ONE (16:43)
[2024-01-17] MEDS: SODIUM CHLORIDE 0.9% 500 ML INFUS.BAG IV ONE (16:43)
[2024-01-17] MEDS: ONDANSETRON 4 MG/2 ML VIAL IVPUSH ONE ×2 (16:43→21:13)
[2024-01-17 16:49] LABS: POTASSIUM 4.1 mmol/L (3.5-5.1)
[2024-01-17 16:51] LABS: ALBUMIN 4.1 g/dl (3.4-5.0); CALCIUM 9.3 mg/dL (8.5-10.1)
[2024-01-17 16:54] LABS: CREATININE 0.8 mg/dL (0.55-1.3)
[2024-01-17 16:56] LABS: BILIRUBIN,TOTAL 0.4 mg/dL (0.2-1); TOT PROT 7.8 g/dl (6.4-8.2)
[2024-01-17] MEDS ORDERED: HALOPERIDOL LACTATE 5 MG/ML ONE (17:28)
[2024-01-17] MEDS: HALOPERIDOL LACTATE 5 MG/ML IM ONE (17:36)
[2024-01-17] MEDS: DEXTROSE 5%-0.45% SALINE 1,000 ML IV SCH (21:13)
[2024-01-18] MEDS ORDERED: PANTOPRAZOLE SODIUM 40 MG/100 ML BAG IVPB ONE (01:34)
[2024-01-18] MEDS: SODIUM CHLORIDE 1,000 ML IV STA (01:47)
[2024-01-18] MEDS: PANTOPRAZOLE SODIUM 40 MG VIAL IVPUSH ONE (01:47)
[2024-01-18 01:54] LABS: EPI CELLS 29 /uL (0-25.1); HYALINE CASTS 1 /uL (0-3.1); PH,URINE 6.5 (5.0-8.0); URINE APPEARANCE CLEAR; URINE BACTERIA 4143 /uL (0-1359); URINE BILIRUBIN NEGATIVE (NEGATIVE); URINE COLOR YELLOW; URINE GLUCOSE (UA) NEGATIVE (NEGATIVE); URINE KETONE 4+ (NEGATIVE); URINE LEUK ESTERASE TRACE (NEGATIVE); URINE NITRITE NEGATIVE (NEGATIVE); URINE PROTEIN 1+ (NEGATIVE); URINE RBC 6 /uL (0-23.9); URINE WBC 32 /uL (0-25.8)
[2024-01-18 01:57] VITALS: BP 136/61; PULSE 53; RESP 18; TEMP 98.3
[2024-01-18 02:01] LABS: COCAINE, UR NEGATIVE (NEGATIVE); METHADONE, UR NEGATIVE (NEGATIVE); PHENCYCLIDINE,URINE NEGATIVE (NEGATIVE); URINE BARBITURATES NEGATIVE (NEGATIVE); URINE BENZODIAZEPINES NEGATIVE (NEGATIVE)
[2024-01-18 02:12] LABS: OPIATES, URI NEGATIVE (NEGATIVE); URINE AMPHETAMINES NEGATIVE (NEGATIVE)
== END 2024-01-18 02:50 | disposition home or self-care (01) ==
LOC: JER 15:38 → JERBED 19:24
PROVIDERS: ADMIT Internal Medicine; ATTEND Internal Medicine
DX: R11.2 Nausea with vomiting, unspecified (principal); F12.90 Cannabis use, unspecified, uncomplicated; D25.9 Leiomyoma of uterus, unspecified
CPT/HCPCS: 36415; 80053; 80307; 81003; 83690; 84703; 85025; 87086; 87186; 93005; 93010; 99285-25; G0378

== ENCOUNTER 2024-02-12 19:12 | Emergency (ER) | payer OTHER ==
[2024-02-12 19:17] VITALS: BP 142/90; PULSE 74; RESP 18; TEMP 97.7; BMI 27.9
[2024-02-12] MEDS ORDERED: ONDANSETRON 4 MG/2 ML VIAL ONE (20:39)
[2024-02-12] MEDS: ONDANSETRON 4 MG/2 ML VIAL IVPB ONE (20:45)
[2024-02-12] MEDS: LACTATED RINGERS SOLUTION 1,000 ML IV STA (20:45)
[2024-02-12 21:13] LABS: BASO % 0.2 % (0-2.0); HEMATOCRIT 39.6 % (32.4-45.2); HEMOGLOBIN 13.8 GM/dL (10.7-15.3); LYMPH % 8.6 % (8-40); MCH 32.3 pg (25.7-33.7); MCHC 34.8 g/dl (32.0-36.0); MEAN CELL VOLUME 92.7 fl (80-96); MEAN PLT VOLUME 7.3 fl (7.5-11.1); MONO % 2.2 % (3.8-10.2); PLATELET COUNT 209 10^3/uL (134-434); RBC 4.28 M/mm3 (3.60-5.2); RDW 12.6 % (11.6-15.6); WHITE BLOOD COUNT 10.7 K/mm3 (4.0-10.0)
[2024-02-12 21:36] LABS: CHLORIDE 107 mmol/L (98-107); POTASSIUM 4.1 mmol/L (3.5-5.1); SODIUM 138 mmol/L (136-145)
[2024-02-12 21:39] LABS: ALBUMIN 3.8 g/dl (3.4-5.0); ANION GAP 8 mmol/L (4-13); BLOOD UREA NITROGEN 9.2 mg/dL (7-18); CALCIUM 9.4 mg/dL (8.5-10.1); CO2 23 mmol/L (21-32); GLUCOSE,RANDOM 123 mg/dL (74-106)
[2024-02-12 21:41] LABS: CREATININE 0.8 mg/dL (0.55-1.3); SGOT/AST 18 U/L (15-37)
[2024-02-12 21:43] LABS: SGPT/ALT 18 U/L (13-61)
[2024-02-12 21:44] LABS: ALK PHOS 48 U/L (45-117); BILIRUBIN,TOTAL 0.6 mg/dL (0.2-1)
[2024-02-12] MEDS ORDERED: PANTOPRAZOLE SODIUM 40 MG VIAL ONE (22:07)
[2024-02-12] MEDS ORDERED: HALOPERIDOL LACTATE 5 MG/ML ONE (22:07)
[2024-02-12] MEDS: PANTOPRAZOLE SODIUM 40 MG VIAL IVPB ONE (22:19)
[2024-02-12] MEDS: LACTATED RINGERS SOLUTION 1,000 ML/1,000 ML INFUS.BAG IV SCH (22:19)
[2024-02-12] MEDS: HALOPERIDOL LACTATE 5 MG/ML IM ONE (22:19)
[2024-02-12 23:27] LABS: EPI CELLS 34 /uL (0-25.1); HYALINE CASTS 0 /uL (0-3.1); URINE APPEARANCE CLEAR; URINE BACTERIA 2623 /uL (0-1359); URINE BILIRUBIN NEGATIVE (NEGATIVE); URINE COLOR YELLOW; URINE GLUCOSE (UA) NEGATIVE (NEGATIVE); URINE KETONE 4+ (NEGATIVE); URINE LEUK ESTERASE TRACE (NEGATIVE); URINE NITRITE NEGATIVE (NEGATIVE); URINE PROTEIN 1+ (NEGATIVE); URINE RBC 15 /uL (0-23.9); URINE WBC 50 /uL (0-25.8)
== END 2024-02-12 23:38 | disposition home or self-care (01) ==
LOC: JER 19:12
PROC: 3E033GC Introduction of Other Therapeutic Substance into Peripheral Vein, Percutaneous Approach (ICD-10-PCS; principal; 2024-02-12)
PROC: 3E033GC Introduction of Other Therapeutic Substance into Peripheral Vein, Percutaneous Approach (ICD-10-PCS; 2024-02-12)
PROC: 3E0337Z Introduction of Electrolytic and Water Balance Substance into Peripheral Vein, Percutaneous Approach (ICD-10-PCS; 2024-02-12)
PROC: 3E023GC Introduction of Other Therapeutic Substance into Muscle, Percutaneous Approach (ICD-10-PCS; 2024-02-12)
DX: N30.00 Acute cystitis without hematuria (principal); F12.188 Cannabis abuse with other cannabis-induced disorder; R11.2 Nausea with vomiting, unspecified; R10.84 Generalized abdominal pain
CPT/HCPCS: 36415; 80053; 81003; 83690; 84702; 85025; 93005; 93010; 99284-25

== ENCOUNTER 2024-09-15 06:16 | Emergency (ER) | payer SELFPAY ==
[2024-09-15 06:22] VITALS: BP 116/82; PULSE 96; RESP 20; TEMP 98.4; BMI 30.7
[2024-09-15] MEDS: ACETAMINOPHEN 500 MG TABLET (FP) PO ONE (07:48)
[2024-09-15 08:06] LABS: EPI CELLS 29 /uL (0-25.1); HYALINE CASTS 0 /uL (0-3.1); PH,URINE 6.5 (5.0-8.0); URINE APPEARANCE CLEAR; URINE BACTERIA 299 /uL (0-1359); URINE BILIRUBIN NEGATIVE (NEGATIVE); URINE COLOR YELLOW; URINE GLUCOSE (UA) NEGATIVE (NEGATIVE); URINE KETONE NEGATIVE (NEGATIVE); URINE LEUK ESTERASE TRACE (NEGATIVE); URINE NITRITE NEGATIVE (NEGATIVE); URINE PROTEIN NEGATIVE (NEGATIVE); URINE RBC 6 /uL (0-23.9); URINE UROBILINOGEN 0.2 mg/dL (0.2-1.0); URINE WBC 96 /uL (0-25.8)
[2024-09-15 08:10] LABS: BASO % 0.4 % (0-2.0); EOS % 0.4 % (0-4.5); HEMATOCRIT 37.8 % (32.4-45.2); HEMOGLOBIN 13.1 GM/dL (10.7-15.3); LYMPH % 17.3 % (8-40); MCH 31.8 pg (25.7-33.7); MCHC 34.6 g/dl (32.0-36.0); MEAN CELL VOLUME 91.9 fl (80-96); MEAN PLT VOLUME 7.3 fl (7.5-11.1); MONO % 9.2 % (3.8-10.2); NEUT % 72.7 % (42.8-82.8); PLATELET COUNT 198 10^3/uL (134-434); RBC 4.12 M/mm3 (3.60-5.2); RDW 12.2 % (11.6-15.6); WHITE BLOOD COUNT 11.7 K/mm3 (4.0-10.0)
[2024-09-15 08:26] LABS: POTASSIUM 3.9 mmol/L (3.5-5.1)
[2024-09-15 08:28] LABS: ALBUMIN 3.4 g/dl (3.4-5.0)
[2024-09-15 08:29] LABS: BLOOD UREA NITROGEN 10.6 mg/dL (7-18)
[2024-09-15 08:32] LABS: CREATININE 0.8 mg/dL (0.55-1.3)
[2024-09-15 08:33] LABS: BILIRUBIN,TOTAL 0.4 mg/dL (0.2-1); TOT PROT 7.1 g/dl (6.4-8.2)
[2024-09-15] MEDS ORDERED: KETOROLAC TROMETHAMINE 15 MG/ML VIAL ONE (09:54)
[2024-09-15] MEDS: KETOROLAC TROMETHAMINE 15 MG/ML VIAL IVPUSH ONE (09:54)
[2024-09-15] MEDS: CIPROFLOXACIN 500 MG TABLET (RESTRICTED TO ID) PO ONE (10:32)
== END 2024-09-15 10:42 | disposition home or self-care (01) ==
LOC: JER 06:16
PROC: 3E0333Z Introduction of Anti-inflammatory into Peripheral Vein, Percutaneous Approach (ICD-10-PCS; principal; 2024-09-15)
DX: N20.0 Calculus of kidney (principal); R10.11 Right upper quadrant pain
CPT/HCPCS: 36415; 74177-TC; 80053; 81003; 83690; 84703; 85025; 87086; 99285-25

== ENCOUNTER 2025-05-01 21:23 | Emergency (ER) | payer SELFPAY ==
[2025-05-01 21:30] VITALS: BP 126/83; PULSE 88; RESP 20; TEMP 98; BMI 27.4
[2025-05-01] MEDS ORDERED: ANAPHYLAXIS KIT ONE (21:31)
[2025-05-01] MEDS: BENZTROPINE MESYLATE 2 MG/2 ML INJECTION NR ONE ×2 (22:04→22:44)
== END 2025-05-01 22:47 | disposition home or self-care (01) ==
LOC: JER 21:23
PROC: 3E033GC Introduction of Other Therapeutic Substance into Peripheral Vein, Percutaneous Approach (ICD-10-PCS; principal; 2025-05-01)
DX: R25.8 Other abnormal involuntary movements (principal); R68.84 Jaw pain; M62.838 Other muscle spasm; T43.4X5A Adverse effect of butyrophenone and thiothixene neuroleptics, initial encounter
CPT/HCPCS: 93005; 93010; 99284-25